=== PATIENT | male | born 1985 | race Caucasian/White ===

== ENCOUNTER 2022-09-04 16:41 | Emergency (ER) | payer SELFPAY ==
[~2022-09-04] VITALS: Ht 162.6 cm; Wt 59.0 kg
[2022-09-04 17:02] VITALS: BP 187/92
[2022-09-04] MEDS ORDERED: DICYCLOMINE HCL LIQUID 20 MG, ALUMINUM HYD/MAG/SIMETHICONE 30 ML, LIDOCAINE VISCOUS 2% ... PO ONE ×3 (17:45)
--- NOTE | 2022-09-04 17:55 | NUR ---
LAB CALLED 3 TIMES IN LOBBY FOR BLOOD WORK, NO ANSWER
--- NOTE | 2022-09-04 17:57 | NUR ---
PT [facility], WAS SEEN BY KAYLEE MORAN, PT DECIDED NOT TO STAY
[2022-09-04 18:12] LABS: BASOPHILS # (AUTO) 0.1 K/uL (0.00-0.22); BASOPHILS % (AUTO) 0.8 % (0.0-2.0); EOSINOPHILS % (AUTO) 0.3 % (0.0-4.0); HEMATOCRIT 43.1 % (36-52); HEMOGLOBIN 14.5 g/dL (12.0-18.0); LYMPHOCYTES # (AUTO) 1.5 K/uL (2.0-11.5); LYMPHOCYTES % (AUTO) 13.5 % (20.5-51.1); MEAN CORPUSCULAR HEMOGLOBIN 32 pg (27-31); MEAN CORPUSCULAR HGB CONC 34 g/dL (33-37); MEAN CORPUSCULAR VOLUME 93.5 fL (80-94); MONOCYTES # (AUTO) 0.8 K/uL (0.8-1.0); MONOCYTES % (AUTO) 7.4 % (1.7-9.3); NEUTROPHILS # (AUTO) 8.7 K/uL (1.8-7.7); PLATELET COUNT (AUTO) 464 K/uL (140-450); RED BLOOD CELL COUNT(AUTO) 4.61 MIL/uL (4.20-6.10); RED CELL DISTRIBUTION WIDTH 13.7 % (11.6-13.7); WHITE BLOOD COUNT (AUTO) 11.2 K/uL (4.8-10.8)
[2022-09-04 18:31] LABS: ALBUMIN 4.1 g/dL (3.4-5.0); ANION GAP 14.7 (8-16); CARBON DIOXIDE 24.1 mmol/L (21-32); POTASSIUM 3.8 mmol/L (3.5-5.1); TOTAL BILIRUBIN 0.6 mg/dL (0.0-1.0)
[2022-09-04] MEDS ORDERED: DICYCLOMINE HCL LIQUID 10 MG/5 ML UDC ONE ×2 (18:49)
[2022-09-04] MEDS ORDERED: ALUMINUM HYD/MAG/SIMETHICONE 30 ML UDC ONE (18:49)
--- NOTE | 2022-09-04 18:54 | NUR ---
PT STATES HE WANTS TO SIT IN LOBBY/OUTSIDE, STATES HE FEELS CLAUSTROPHOBIA IN THE ROOM. NIKOD MADE AWARE
--- NOTE | 2022-09-04 19:52 | NUR ---
Called- no show in lobby and outside.
--- NOTE | 2022-09-04 19:52 | NUR ---
PATIENT ELOPED FROM FACILITY. DISCHARGE INSTRUCTIONS NOT GIVEN TO PATIENT. KAYLEE MORAN NOTIFIED.
--- NOTE | 2022-09-04 19:55 | NUR ---
KAYLEE MORAN spoke with his sister (Cinthya)
== END 2022-09-04 19:52 | disposition left against medical advice (07) ==
LOC: MED 16:41
DX: G89.29 Other chronic pain (principal); R10.9 Unspecified abdominal pain; F12.90 Cannabis use, unspecified, uncomplicated; F15.90 Other stimulant use, unspecified, uncomplicated; F17.210 Nicotine dependence, cigarettes, uncomplicated
CPT/HCPCS: 36415; 80053; 83690; 85025; 99283